=== PATIENT | male | born 1955 | race Caucasian/White ===

== ENCOUNTER → 2021-05-27 09:08 | Outpatient (BNVA) | payer MEDICARE, OTHER, SELFPAY | PROVIDERS: Visit Provider Internal Medicine Pulmonary Disease | DX: Z20.822 Contact with and (suspected) exposure to COVID-19 (principal); R91.1 Solitary pulmonary nodule | CPT/HCPCS: 87635 ==

== ENCOUNTER 2021-06-02 11:19 | Outpatient (CLI) | payer MEDICARE, OTHER, SELFPAY ==
--- NOTE | 2021-06-02 14:00 | PFTS_ITS ---
Date of Study:06/02/21 Date of Dictation: 06/03/21 MECHANICS: Postbronchodilator forced vital capacity (FVC) is reduced. Postbronchodilator forced expiratory volume in one second (FEV1) is severely reduced 34%. FEV1/FVC is reduced. There is no significant response to bronchodilators FLOW VOLUME LOOP: Severe sloping of expiratory limb suggestive of severe airway obstruction . LUNG VOLUMES: Not measured DIFFUSING CAPACITY FOR CARBON MONOXIDE: Severely reduced to 34 % . INTERPRETATION: The pulmonary function tests are consistent with severe airway obstruction on spirometry and severe gas transfer defect. All these constellation of findings are consistent with emphysema, lung volumes not measured. Clinical correlation recommended. MTDD
== END 2021-06-02 11:20 | disposition home or self-care (01) ==
LOC: RT 11:32
PROVIDERS: PCP Nurse Practitioner Family; Visit Provider Internal Medicine Pulmonary Disease
DX: R91.1 Solitary pulmonary nodule (principal)
CPT/HCPCS: 94060; 94618; 94729; J7611

== ENCOUNTER → 2021-06-24 00:01 | Outpatient (BNVA) | payer MEDICARE, OTHER, SELFPAY | PROVIDERS: PCP Nurse Practitioner Family; Visit Provider Internal Medicine Pulmonary Disease | DX: Z20.822 Contact with and (suspected) exposure to COVID-19 (principal); R91.1 Solitary pulmonary nodule; J43.2 Centrilobular emphysema | CPT/HCPCS: 87635 ==

== ENCOUNTER 2021-06-29 06:12 | Day surgery (SDC) | payer MEDICARE, OTHER, SELFPAY ==
[2021-06-25 10:57] VITALS: BMI 23.0
[2021-06-29] VITALS (9 sets, daily range): BP systolic 108–141; BP diastolic 63–80; PULSE 61–94; RESP 16–22; TEMP 33.6–36.4; O2SAT 90–98
--- NOTE | 2021-06-29 | CT_ITS ---
Guided Bronchoscopy Planning CT images; total exam DLP: 844.11 mGy-cm MTDD
[2021-06-29] MEDS: sodium chloride 0.9% 1,000 ML 30 ML IV ×2 (06:50→09:00)
--- NOTE | 2021-06-29 06:52 | P.ANESASSM_ITS ---
Pre-Anesthetic Assessment Height/Weight: Height 1.83 m Weight 77.111 kg Operation Date: 06/29/21 07:00 Proposed Procedures anthony Soares [id number]/r91.8(Not Applicable) - Valeriano Vivas MD Familial anesthetic complications: none Last intake: sip h20 at 0500 Social Tobacco (45+) and No alcohol (stop last year) Airway Submandibular: within normal limits Cervical ROM: within normal limits Mallampati: Class II Dentition: false Pulmonary Chronic Obstructive Pulmonary Disease, Cough, Exertional Dyspnea, Sleep Apnea and Shortness of Breath lung nodule. Placed 2L NC. Started last week CV/HEM None reported None reported Hepatic None reported GI None reported Metabolic None reported Musc/skel Lower Back Pain and Osteoarthritis/DJD Neuropsych Dementia (loss of time ) Anesthetic Plan ASA status: 4 Anesthesia: General Medications/Allergies Home Medications Medication Instructions Recorded Confirmed Last Taken Type multivitamin 1 tab PO DAILY 05/21/21 06/25/21 Unknown History trazodone 50 mg tablet 50 mg PO DAILY PRN 05/21/21 06/25/21 Unknown History albuterol sulfate 90 mcg/actuation 1 puff INHALATION QID PRN #8.5 g 06/07/21 06/25/21 Unknown Rx aerosol inhaler umeclidinium 62.5 mcg-vilanterol 1 inh INHALATION DAILY #60 ea 06/07/21 06/25/21 Unknown Rx 25 mcg/actuation powdr for inhalation (Anoro Ellipta) Allergies Allergy/AdvReac Type Severity Reaction Status Date / Time codeine Allergy Unknown Unknown Verified 06/29/21 06:57 Penicillins Allergy Unknown Unknown Verified 06/29/21 06:57 [facility] Anesthesia Medical History Depression Social History Smoking and tobacco status: current every day smoker cigarettes Packs smoked per day: 1 Years cigarettes smoked: 47 [ Other cigarette details: rolled his own] Data Anesthesia Cardiac Studies: No Data to Display
--- NOTE | 2021-06-29 07:05 | P.HPUD_ITS ---
Surgery/Procedure H&P Update DATE OF PROCEDURE: June 29, 2021 DATE H&P PERFORMED: 06/24/21 CHANGES TO PREVIOUS DOCUMENTATION: No new changes General: alert, NAD HEENT: conj clear, EOMI, PERRL, mmm, Neck: supple, no meningismus Heme: no cervical LAP Pulmonary: reduced breath sounds bilaterally with no obvious wheezing or crackles or crepitations Cardiovascular: rrr, nl s1s2, no mrg Abdomen: soft, nt, nd, no r/g, bs+ Extremities: pulses +, no edema, no c/c : no CVA tenderness Skin: intact, no rash MSK: no back or neck pain Neurologic: grossly intact ? PRIMARY INDICATION FOR PROCEDURE: left upper lobe fdg active lesion suspicious for lung malignancy in chronic smoker PLANNED PROCEDURE: Operation Date: 06/29/21 07:00 Proposed Procedures anthony Soares [id number](Not Applicable) - Valeriano Jha DatarMD Bronchoscopy for airway inspection and obtaining Broncheoalveolar lavage, Endob rochial ultrasound guided surveillance of mediastinal and hilar lymphnodes and possible transbronchial biopsies, Navigational bronchoscopy guided transbronchial biopsy and fine needle aspiration of left upper lobe nodule and control of bleeding. ADDITIONAL INFORMATION: managed as per Anesthesia Related Problem List Diagnoses (1) Left upper lobe pulmonary nodule: (2) Smoker:
[2021-06-29] MEDS: cetacaine Spray 5 gm Can 1 SPRAY TOPICAL (07:55)
[2021-06-29] MEDS: lidocaine 1% INJ 20 mL XX (07:55)
--- NOTE | 2021-06-29 09:53 | XR_ITS ---
WS: [id number] CHEST XRAY TECHNIQUE: Portable chest. CLINICAL INFORMATION: post bronch/EBUS COMPARISON: None. FINDINGS: Heart: Normal cardiac silhouette. Lungs: No pneumothorax. Interstitial thickening in the RIGHT greater than LEFT lower lobes. Slight pa tchy infiltrates in the RIGHT middle lobe and inferior segment RIGHT upper lobe better seen on the na vigational bronchoscopy CT. Bones: Normal visualized bony structures. XR/XR chest 1V portable [id number] IMPRESSION: 1. No pneumothorax. 2. Interstitial thickening in the RIGHT greater than LEFT lower lobes. 3. Patchy infiltrates in the RIGHT middle lobe and inferior segment RIGHT uppe r lobe are better seen on the navigation bronchoscopy CT. These are indetermina te but may be infectious or inflammatory. Recommend interval follow-up chest CT .
--- NOTE | 2021-06-29 09:56 | PM.OP ---
Operative Report Date of procedure: June 29, 2021 Pre-op diagnosis: Left upper lobe nodule suspicious for malignancy Post-op diagnosis: Left upper lobe nodule suspicious for malignancy Procedure done: Bronchoscopic inspection of airway, navigational bronchoscopy guided fine-needle aspiration of left upper lobe nodule, endobronchial ultrasound guided transbronchial needle biopsy of station 7 lymph node and control of bleeding Surgeon: Valeriano Vivas MD Brief History: Mr. Nilson vann Self referred for pulm nodule, PCP from previous town ordered PET, has moved and no one else following.? Current cigarette smoker, 1-1.5ppd x 47 year Hx, rolled his own cigarettes, currently smokes approx 3 cigarettes per day. Patient Does not participate in active conversation But came to clinic with his sister and daughter,.Patient sister and daughter were more involved in giving information and asked several questions regarding the plan of care for PET positive lung lesion. Apparently patient was not taking care of himself for several years. Has been drinking alcohol daily and smoking cigarettes every day.He had a CT chest at [facility] on 03/10[facility]2021 which showed a spiculated nodule within left upper lobe suspicious for malignancy 1.1 cm.? Also there was an indeterminate nodule more inferiorly within the left upper lobe and irregular nodular opacity within the right upper lobe. Patient underwent PET/CT on 03/27/2021 which showed 1.1 cm central left upper lobe pulmonary nodule with SUV 3.5 indicating high probability of malignancy.? Calcified granuloma in right lung apex and anterior left upper lobe are FDG negative.? There are no findings to indicate local or distant metastatic disease. Patient was seen by Dr. Leahy for possible left upper lobectomy for PET positive central left upper lobe nodule but given he is borderline PFTs with postbronchodilator FEV1? 34% and DLCO 35%. Dr. Leahy and myself decided not to go for surgical resection. I discussed with Dr. Rodriguez interventional radiologist for CT-guided biopsy but as the lesion is located centrally away from pleura he said it is difficult to Obtain biopsy without complication. Patient Came with his daughter to clinic 06/24/[address] surgery evaluation-And we discussed about navigational bronchoscopy guided biopsy and endoscopic ultrasound surveillance of mediastinal And hilar lymph nodes and And plan is if we can get tissue biopsy I will refer him for radiation. Today scheduled for Bronchoscopic inspection of airway, navigational bronchoscopy guided fine-needle aspiration of left upper lobe nodule, endobronchial ultrasound guided transbronchial needle biopsy of station 7 lymph node and control of bleeding Procedure: Name of the procedure: Bronchoscopic inspection of airway, navigational bronchoscopy guided fine-needle aspiration of left upper lobe nodule, endobronchial ultrasound guided transbronchial needle biopsy of station 7 lymph node and control of bleeding Indication: 1.1 cm central left upper lobe pulmonary nodule with SUV 3.5 indicating high probability of malignancy Anesthesia: General anesthesia. Local anesthesia: The jarred in the right and left mainstem bronchi were anesthetized with 1% lidocaine, 3 mL. Description of the procedure: The procedure was explained to the patient and the consent was obtained. The patient was brought to the OR. The patient underwent endotracheal intubation for general anesthesia. Following induction of general anesthesia, the bronchoscope was advanced through the ET tube. The lower trachea appeared normal. The Main jarred was sharp. The distal trachea, the right and left mainstem bronchi are anesthetized with 1% lidocaine. In a systematic manner bilateral bronchial tree was then examined. The bronchoscope was then introduced into the right mainstem bronchus. The right upper lobe, right middle lobe and right lower lobe bronchi were examined up to the third subsegmental level and no abnormalities were identified. Mucosa appeared normal with no endobronchial lesions. There were thick mucus secretions noted on right trachebronchial tree which were suctioned right away. The bronchoscope was advanced into the left mainstem bronchus. The left upper lobe, lingula and left lower lobe bronchi were examined up to the third subsegmental level and no abnormalities were identified. Mucosa appeared normal with no endobronchial lesions or secretions. Using navigational bronchoscopy technique, fine-needle aspirations using aspiration needle and triple brush were obtained from the left upper lobe lesion.The lesion was close to airway and was very difficult to approach however we were able to reach peripheral portion of it. Bronchoalveolar lavage was performed from the left upper lobe.? 60 mL of saline was instilled, fluid return was 25 mL.? The fluid return has mucus flecks and blood tinged. The endobronchial ultrasound was introduced through the ET tube.? Lymphadenopathy involving the station 7 are noted.? Fine-needle aspiration was performed from the station 7 lymph node stations Samples: 1.? The fine-needle aspiration was sent for histopathology, and cytology 2.? The bronchoalveolar lavage was sent for Gram stain culture and culture 4.? The transbronchial needle aspiration of the station 7 lymph node groups were sent for histopathology. Complications: There were no immediate complications. Post procedure CXR: No evidence of pneumothorax Related Problem List Diagnoses (1) Left upper lobe pulmonary nodule: (2) COPD (chronic obstructive pulmonary disease): (3) Smoker:
--- NOTE | 2021-06-29 17:14 | ANE.PACU2 ---
Inpatient post-anesthesia follow up: Airway intact: Yes Vital signs: Temperature 92.4 F Pulse Rate 61 Respiratory Rate 22 Blood Pressure 120/74 Pulse Oximetry 93 Oxygen Delivery Me thod Simple Mask Oxygen Flow Rate 2 Fraction of Inspir ed Oxygen Hydration adequate: Yes Nausea and vomiting: No Pain level: 2 Mental status: Baseline
== END 2021-06-29 11:30 | disposition home or self-care (01) ==
PROVIDERS: PCP Nurse Practitioner Family; Visit Provider Internal Medicine Pulmonary Disease
PROC: 0BJ08ZZ Inspection of Tracheobronchial Tree, Via Natural or Artificial Opening Endoscopic (ICD-10-PCS; CPT 31622; principal; 2021-06-29 07:00)
DX: R91.1 Solitary pulmonary nodule (principal); J43.2 Centrilobular emphysema; F17.210 Nicotine dependence, cigarettes, uncomplicated; G47.30 Sleep apnea, unspecified; Z99.81 Dependence on supplemental oxygen; M19.90 Unspecified osteoarthritis, unspecified site; F03.90 Unspecified dementia, unspecified severity, without behavioral disturbance, psychotic disturbance, mood disturbance, and anxiety
CPT/HCPCS: 31624; 31627; 31652; 36415; 71045; 71250; 77011; 80500; 87070; 87205; 88112; 88305; J2704; J2710; J3010; J3490; J7030

== ENCOUNTER → 2021-07-13 09:21 | Outpatient (BNVA) | payer MEDICARE, OTHER, SELFPAY | PROVIDERS: PCP Nurse Practitioner Family; Visit Provider Nurse Practitioner Family | DX: I10 Essential (primary) hypertension (principal); R79.89 Other specified abnormal findings of blood chemistry; E03.9 Hypothyroidism, unspecified; J43.2 Centrilobular emphysema | CPT/HCPCS: 80053; 84443 ==

== ENCOUNTER 2021-07-15 08:35 | Outpatient (CLI) | payer MEDICARE, OTHER, SELFPAY ==
[2021-07-15 08:53] VITALS: BMI 24.0
--- NOTE | 2021-07-15 08:59 | ECG_ITS ---
[facility] Test Date: 2021-07-15 Pat Name: Nilson Piedra Department: Room: Gender: Male Senior Java Web Developer: Jennifer Machado : 1955 Requested By: Valeriano Jha Order Number: [id number] Reese MD: Yanni Valentin M.D. Interpretive Statements NAME OF STUDY: DOBUTAMINE SESTAMIBI STRESS TEST INDICATION: Shortness of Breath PROCEDURE: At the baseline, the blood pressure was 119/68 mmHg, oxygen saturation 87% with a heart rate of 50 beats per minute. The electrocardiogram showed sinus bradycardia, normal axis with normal ST and T's. The dobutamine was infused over a period of 14 minutes 54 seconds. The maximum heart rate obtained was 134 bpm (92% of the maximum predicted heart rate). The blood pressure at that time was 206/50 mmHg. The patient did not have any chest pain or any significant electrocardiogram changes with the dobutamine infusion. The physical examination remained unchanged. No arrhythmias were seen on the monitor. During the recovery phase, the patient did not have any specific symptoms. The blood pressure at the end of the recovery phase was 106/60 mmHg, oxygen saturation 93% with a heart rate of 85 beats per minute. CONCLUSION: 1. Normal EKG response to dobutamine infusion. 2. No arrhythmia or chest pain with dobutamine infusion 3. Functional status could not be assessed due to pharmacological protocol. 4. Sestamibi/Sestamibi perfusion scan pending; see separate report. SEND RESULTS TO DR. ASHER Electronically Signed On 07-19-2021 16:36:22 [employer] by Yanni Valentin M.D. [id number]
--- NOTE | 2021-07-15 08:59 | NMCV_ITS ---
NM monroe perf SPECT r/s* [id number] Nilson Piedra Age: 66 Gender: M : 1955 Exam Date: 07/15/2021 08:59 Ordering Phys: Valeriano Vivas MD Technologist: KEANU Modi Exam Location: [facility] Indications: SHORTNESS OF BREATH STRESS TEST Please see separate stress test report in [facility] for full findings IMAGE PROTOCOL Rest/Stress 1 Dobutamine Day Radiopharmaceutical Dose (mCi) Administration Site Administered by Rest: Tc-99m 10.1 IV KEANU Modi Sestamibi Stress:Tc-99m 32.4 IV KEANU Kennedy Sestamibi Rest: 15-Jul-2021 60 Discovery 630 Stress: 15-Jul-2021 30 Discovery 630 Radiopharmaceutical was injected at 85 % maximum heart rate. Supine position only as patient was unable to lay prone. SPECT RESULTS Technical Quality: Excellent Raw Data Analysis: Normal Image Corrections: No attenuation or motion correction applied Summed Stress Score: 3 Summed Rest Score: 0 Summed Difference Score: 3 PERFUSION FINDINGS Small sized partially reversible perfusion abnormality of mild severity of mid inferior and mid inferoseptal marcos on supine stress images. FUNCTIONAL RESULTS (calculated via Gated SPECT) Stress Image LV EF (%): 70 Stress EDV (mL):91 TID: 0.88 Stress ESV (mL):27 FUNCTIONAL FINDINGS: The left ventricle is normal in size. Transient Ischemia Dilatation of 0.88. There is normal left ventricular systolic function. The left ventricular ejection fraction is normal with a value of 70%. There is normal left ventricular wall thickening with no regional wall motion abnormality. Normal end-diastolic and end-systolic volumes. IMPRESSIONS 1. Small sized partially reversible perfusion abnormality of mild severity of mid inferior and mid inferoseptal marcos on supine stress images. 2. This may represent small area of ischemia in right coronary artery or attenuation artifact. 3. Overall left ventricular systolic function is normal without regional wall motion abnormalities, LVEF=70%. 4. EKG portion of the study will be reported separately. 5. No prior similar studies to compare. Yanni Valentin MD (Electronically Signed) Final Date: 19 July 2021 18:18 S
[2021-07-15] MEDS: DOBUTtamine 200 MG in sodium chloride 0.9% 34 ML 11.7 MG IV (11:21)
[2021-07-15] MEDS: atropine 0.1 mg/mL Syr 10 mL 0.5 MG IVP (11:34)
[2021-07-15] MEDS: metoprolol tartrate 1 mg/1 mL SDV 5 mL 5 MG IV (11:41)
[2021-07-15 11:51] VITALS: BP 106/60; PULSE 88
== END 2021-07-15 08:36 | disposition home or self-care (01) ==
LOC: RAD 08:35 → CDL 08:37
PROVIDERS: PCP Nurse Practitioner Family; Visit Provider Internal Medicine Pulmonary Disease
DX: R06.02 Shortness of breath (principal); R91.1 Solitary pulmonary nodule
CPT/HCPCS: 78452; 93017; A9500; J0461; J1250; J3490; J7050

== ENCOUNTER 2021-10-26 10:53 | Outpatient (CLI) | payer MEDICARE, OTHER, SELFPAY ==
--- NOTE | 2021-10-26 11:06 | CT_ITS ---
WS: [id number] CT CHEST WITHOUT INTRAVENOUS CONTRAST HISTORY: reevaluate lung nodule TECHNIQUE: Contiguous 5 mm axial imaging performed on the thorax. Coronal and sagittal reformats are submitted. All CT scans at [facility] use at least one of these dose optimization techniques: automated exposure control; mA and/or kV adjustment per patient size (includes targeted exams where dose is matched to clinical indication); or iterative reconstruction. CONTRAST: None DLP: 644.39 mGy.cm COMPARISON: PET/CT 03/27/2021 Lungs and central airway: Moderate pulmonary hyperinflation. PET/CT positive spiculated nodule RIGHT upper lobe with a maximum long axis diameter 14 mm. Very slightly increased in size since 03/27/2021 from [address] negative nodules which are probably granulomata in the RIGHT upper lobe and in the anterior LEFT upper lobe. No new nodules. Pleura: Normal. No pleural effusion. Heart and pericardium: Normal size heart with no pericardial effusion. Mediastinum and ger: On this unenhanced study no lymph nodes or enlarging lymph nodes are identified . Vessels: Mild atherosclerosis aorta and proximal great vessels. Coronary artery calcifications. Signi ficant in the LEFT anterior descending. Chest wall and lower neck: No soft tissue masses. Upper abdomen: No adrenal mass. Visualized unenhanced liver is negative. Osseous structures: Mild anterior wedging of T2 and T3. CT/CT chest wo con [id number] IMPRESSION: 1. Very slight increase in size, by 3 mm, of the PET/CT positive nodule LEFT upper lobe now measuring 14 mm maximum diameter. 2. Benign, PET/CT negative additional bilateral upper lobe nodules. 3. No increase in size or new lymph nodes. 4. Atherosclerosis aorta and coronary artery calcifications.
== END 2021-10-26 10:54 | disposition home or self-care (01) ==
LOC: RAD 10:55
PROVIDERS: PCP Nurse Practitioner Family; Visit Provider Internal Medicine Pulmonary Disease
DX: R91.1 Solitary pulmonary nodule (principal); I70.0 Atherosclerosis of aorta; I25.10 Atherosclerotic heart disease of native coronary artery without angina pectoris
CPT/HCPCS: 71250

== ENCOUNTER 2021-10-28 08:51 | Outpatient (CLI) | payer MEDICARE, OTHER, SELFPAY ==
[2021-10-28 10:05] LABS: Chol HDL Ratio 4.38 mg/dL (1.0-5.00); Cholesterol 228 mg/dL (0-200); HDL Cholesterol 52 mg/dL (60-100); LDL Cholesterol Calculated 160 mg/dL (50-129); LDL HDL Ratio 3.08 RATIO (0.00-3.22); Thyroid Stimulating Hormone 4.74 uIU/mL (0.27-4.20); Triglycerides 81 mg/dL (0-150)
== END 2021-10-28 08:52 | disposition home or self-care (01) ==
PROVIDERS: PCP Nurse Practitioner Family; Visit Provider Nurse Practitioner Family
DX: R06.00 Dyspnea, unspecified (principal); Z12.5 Encounter for screening for malignant neoplasm of prostate; E03.9 Hypothyroidism, unspecified; E78.5 Hyperlipidemia, unspecified; J43.2 Centrilobular emphysema; R91.1 Solitary pulmonary nodule; Z71.6 Tobacco abuse counseling; F17.210 Nicotine dependence, cigarettes, uncomplicated
CPT/HCPCS: 36415; 80061; 84443; 99214; G0103

== ENCOUNTER → 2021-10-29 08:40 | Outpatient (BNVA) | payer MEDICARE, OTHER, SELFPAY | PROVIDERS: PCP Nurse Practitioner Family; Visit Provider Internal Medicine Cardiovascular Disease | DX: E03.9 Hypothyroidism, unspecified (principal); F03.90 Unspecified dementia, unspecified severity, without behavioral disturbance, psychotic disturbance, mood disturbance, and anxiety; F32.A Depression, unspecified; R91.1 Solitary pulmonary nodule; F17.210 Nicotine dependence, cigarettes, uncomplicated; J43.2 Centrilobular emphysema; R06.00 Dyspnea, unspecified | CPT/HCPCS: 99204 ==